=== PATIENT | female | born 1995 | race Caucasian/White ===

== ENCOUNTER 2017-03-03 01:16 | Observation (INO) | payer BC ==
[2017-03-03] MEDS ORDERED: KETOROLAC 30 MG/ML VIAL IVP ONE ×2 (01:26→17:59)
[2017-03-03] MEDS ORDERED: 0.9 % SODIUM CHLORIDE 1000ML 1,000 ML IV SCH (01:30)
[2017-03-03] MEDS ORDERED: MAGNESIUM HYDROXIDE/AL HYDROX 30 ML, LIDOCAINE VISC 2% 200 MG PO ONE ×2 (01:32)
--- NOTE | 2017-03-03 01:32 | Emergency Department Record ---
History of Present Illness - General Chief Complaint: Abdominal Pain Stated Complaint: ABD PAIN Time Seen by Provider: 03/03/17 01:26 Source: Patient Mode of Arrival: Ambulatory Limitations: No limitations - History of Present Illness Initial Comments: 21 yo female presents to ED with a CC of epigastric abdominal pain that began 1.5 hours ago. Patient reports associated nausea without vomiting, denies fevers, chills, or urinary symptoms. Patient denies health problems at her baseline and denies previous abdominal surgery. Patient looked up her symptoms on the internet and is concerned that her gallbladder may be the source. MD Complaint: Abdominal pain Onset/Timin -: Hour(s) Location: Epigastric Radiation: RUQ Severity: Moderate Quality: Aching Consistency: Constant Improves With: Nothing Worsens With: Nothing Associated Symptoms: Nausea - Related Data Home Medications Medication Instructions Recorded Confirmed Last Taken Control 1 tab PO DAILY 03/03/17 Unknown Allergies Allergy/AdvReac Type Severity Reaction Status Date / Time escitalopram oxalate AdvReac Seizures Verified 04/22/14 23:43 [From [employer]] Review of Systems Constitutional: Denies: Chills, Fever, Malaise, Night sweats Eyes: Denies: Eye discharge, Eye pain ENT: Denies: Congestion, Ear pain, Epistaxis Respiratory: Denies: Cough, Dyspnea Cardiovascular: Denies: Chest pain, Dyspnea on exertion Endocrine: Denies: Fatigue, Heat or cold intolerance Gastrointestinal: Reports: Abdominal pain, Nausea. Denies: Constipation, Vomiting Genitourinary: Denies: Dysuria, Frequency Musculoskeletal: Denies: Arthralgia, Back pain, Gout, Joint swelling Skin: Denies: Bruising, Change in color, Change in hair/nails Neurological: Denies: Abnormal gait, Confusion, Headache, Seizure Psychiatric: Denies: Anxiety Hematological/Lymphatic: Denies: Anemia, Blood Clots Past Medical History - SOCIAL HISTORY Smoking Status: Never smoker - RESPIRATORY Hx Respiratory Disorders: Yes Hx Asthma: Yes - CARDIOVASCULAR Hx Cardio Disorders: No - NEURO Hx Neuro Disorders: Yes Hx Seizures: Yes - GI Hx GI Disorders: No - Hx Genitourinary Disorders: Yes Comment:: Polycystic ovaries - ENDOCRINE Hx Endocrine Disorders: No - MUSCULOSKELETAL Hx Musculoskeletal Disorders: No - PSYCH Hx Psych Problems: Yes Hx Anxiety: Yes Hx Depression: Yes - HEMATOLOGY/ONCOLOGY Hx Hematology/Oncology Disorders: No Family Medical History Hx Cancer: Father, Grandparents Hx Diabetes: Grandparents Hx Heart Disease: Grandparents Physical Exam - General General Appearance: Alert, Oriented x3, Cooperative, No acute distress Limitations: No limitations - Head Head exam: Atraumatic, Normocephalic, Normal inspection Head exam detail: negative: Abrasion, Contusion, Dale's sign, General tenderness, Hematoma, Laceration - Eye Eye exam: Normal appearance. negative: Conjunctival injection, Periorbital swelling, Periorbital tenderness, Scleral icterus - ENT Ear exam: negative: Auricular hematoma, Auricular trauma Nasal Exam: negative: Active bleeding, Discharge, Dried blood, Foreign body Mouth exam: negative: Drooling, Laceration, Muffled voice, Tongue elevation - Neck Neck exam: Normal inspection. negative: Meningismus, Tenderness - Respiratory Respiratory exam: Normal lung sounds bilaterally. negative: Rales, Respiratory distress, Rhonchi, Stridor - Cardiovascular Cardiovascular Exam: Regular rate, Normal rhythm, Normal heart sounds - GI/Abdominal GI/Abdominal exam: Soft, Tenderness, Other (mild TTP epigastric region, no rebound or guarding present, no pain with palpation to the RUQ.). negative: Rebound, Rigid - Rectal Rectal exam: Deferred - exam: Deferred - Extremities Extremities exam: Normal inspection. negative: Calf tenderness, Pedal edema, Tenderness - Back Back exam: Denies: CVA tenderness (R), CVA tenderness (L) - Neurological Neurological exam: Alert, Normal gait, Oriented X3 - Psychiatric Psychiatric exam: Normal affect, Normal mood - Skin Skin exam: Normal color. negative: Abrasion Type of lesion: negative: abrasion Course - Reevaluation(s) Reevaluation #1: 03/03/17 02:09 Labs reviewed, AST 38/ALT 58, labs are otherwise grossly unremarkable for an acute process. UA pending. Reevaluation #2: 03/03/17 03:13 UA reviewed and appears negative for infection. Patient is going to CT at this time. Reevaluation #3: 03/03/17 03:55 CT Abdomen and Pelvis: Cholithiasis with mild gallbladder wall thickening, no елена-cholecystic fluid present, no biliary ductal dilation. Medical Decision Making - Lab Data Result diagrams: 03/03/17 01:35 03/03/17 01:35 Disposition Disposition: Admit Clinical Impression: Epigastric abdominal pain, Cholecystitis Disposition: Still a Patient at [facility] Decision to Admit: Admit from ER Decision to Admit Date: 03/03/17 Decision to Admit Time: 04:20 Condition: (2) Stable Time of Disposition: 04:18 Quality - Quality Measures Quality Measures: N/A - Blood Pressure Screening Does Patient Have Any of the Following: No Blood Pressure Classification: Hypertensive Reading Systolic Measurement: 158 Diastolic Measurement: 109 Screening for High Blood Pressure: < First Hypertensive BP, F/U Documented > [ G8950] First Hypertensive Follow-up Interventions: Referral to alternative/primary care provider.
[2017-03-03 01:50] LABS: BASO % 0.2 % (0-6); EOS % 1.2 % (0-6); GRAN % 66.6 % (47-80); HEMATOCRIT 39.8 % (35.0-47.0); HEMOGLOBIN 13.3 gm/dl (11.6-16.0); LYMPH % 22.8 % (16-45); MEAN CELL VOLUME 84.3 fl (81-97); MEAN CORPUSCULAR HEMOGLOBIN 28.2 pg (27-33); MEAN CORPUSCULAR HGB CONC 33.4 g/dl (32-36); MEAN PLATELET VOLUME 11.1 fl (7.4-10.4); MONO % 9.2 % (0-9); PLATELET COUNT 300 K/uL (130-400); RED BLOOD COUNT 4.72 M/uL (3.80-5.40); RED CELL DISTRIBUTION WIDTH 12.4 % (11.5-14.5); WHITE BLOOD COUNT W/O DIFF 11.6 K/uL (4.2-12.2)
[2017-03-03 02:02] LABS: ALB/GLOB RATIO 1.6 (1.1-1.8); ALBUMIN 4.4 gm/dL (3.5-5.0); ALKALINE PHOSPHATASE 70 U/L (38-126); ALT/SGPT 58 U/L (9-52); AST/SGOT 38 U/L (14-36); BILIRUBIN,TOTAL 0.63 mg/dL (0.2-1.3); BLOOD UREA NITROGEN 12 mg/dL (7-17); CREATININE 0.8 mg/dL (0.52-1.04); GLUCOSE,RANDOM 121 mg/dL (70-110); LIPASE 153 U/L (23-300); TOTAL PROTEIN 7.2 gm/dL (6.3-8.2)
[2017-03-03 03:11] LABS: URINE APPEARANCE CLEAR; URINE BILIRUBIN NEGATIVE (NEGATIVE); URINE BLOOD NEGATIVE (NEGATIVE); URINE COLOR YELLOW; URINE GLUCOSE (UA) NEGATIVE (NEGATIVE); URINE KETONE NEGATIVE (NEGATIVE); URINE LEUKOCYTE ESTERASE NEGATIVE (NEGATIVE); URINE NITRITE NEGATIVE (NEGATIVE); URINE PROTEIN NEGATIVE (NEGATIVE); URINE UROBILINOGEN 0.2 E.U./dL (0.20 - 1.00)
[2017-03-03 03:12] LABS: HCG,QUALITATIVE URINE NEGATIVE (NEGATIVE)
[2017-03-03] MEDS ORDERED: ERTAPENEM SODIUM 1 G in 0.9 % SODIUM CHLORIDE 100ML 100 ML IVPB ONE (04:20)
[2017-03-03] MEDS ORDERED: 0.9 % SODIUM CHLORIDE 1000ML 1,000 ML IV PRN (05:26)
[2017-03-03] MEDS: MORPHINE SULFATE 5 MG/ML PFS IVP PRN ×3 (06:43→14:34)
[2017-03-03] MEDS: ONDANSETRON HCL IV 4 MG/2 ML VIAL IVP PRN ×2 (06:44→17:04)
--- NOTE | 2017-03-03 09:33 | History & Physical ---
History of Present Illness - Date of Service Date of Service for History & Physical: 03/03/17 - History of Present Illness Admitting Diagnosis: Cholecystitis History of Present Illness: 21 yo female admitted w/ epigastric pain. PMHx of obesity. Abdominal pain began around midnight last night. located in epigastrium. Radiates to right upper abd, mid back and right shoulder. Described as achy, sharp and dull. aggravated by sitting up, coughing. alleviated by bending over. associated symptoms include diaphoresis, nausea, flatulence, constipation. Patient was then brought in by her mother. upon presentation, HR 125, BP 158/109. WBC normal. AST 38, ALT 58, glucose 121 , UA negative. Abdominal CT: GB wall thickening and cholelithiasis. Patient was given a dose of Ertapenem and 30 mg of IV Ketoralac for pain in the ER. Started on IV NS. General surgery consulted and patient admitted for further medical management. 03/03/17 at 9:33- Patient lying in bed comfortably. States epigastric pain return once she arrived to the floor, however it's now resolved. no fever, chills, vomiting, sweating, blood in stool, diarrhea, dysuria, skin color change , pruritis, cough, sob or cp. Patient denies any previous abd surgeries. States she takes OCP, o/w no other medications. no recent sick contacts, travel or hospitalizations. Denies drug or etoh use. PCP: Dr. Lezama ([place], [place]) Travel Screening - Travel/Exposure Within Last 30 Days Have you traveled within the last 30 days?: No - Travel/Exposure Within Last Year Have you traveled outside the [place] in the last year?: No - Additonal Travel Details Have you been exposed to anyone with a communicable illness?: No - Travel Symptoms Symptom Screening: None Review of Systems Constitutional: Denies: Chills, Fever, Malaise, Night sweats Eyes: Denies: Eye discharge, Eye pain ENT: Denies: Congestion, Ear pain, Epistaxis Respiratory: Denies: Cough, Dyspnea Cardiovascular: Denies: Chest pain, Dyspnea on exertion Endocrine: Denies: Fatigue, Heat or cold intolerance Gastrointestinal: Reports: Abdominal pain (mild epigastric pain). Denies: Constipation, Nausea, Vomiting Genitourinary: Denies: Dysuria, Frequency Musculoskeletal: Denies: Arthralgia, Back pain, Gout, Joint swelling Skin: Denies: Bruising, Change in color, Change in hair/nails Neurological: Denies: Abnormal gait, Confusion, Headache, Seizure Psychiatric: Denies: Anxiety Hematological/Lymphatic: Denies: Anemia, Blood Clots Past Medical History - SOCIAL HISTORY Smoking Status: Never smoker - RESPIRATORY Hx Respiratory Disorders: Yes Hx Asthma: Yes - CARDIOVASCULAR Hx Cardio Disorders: No - NEURO Hx Neuro Disorders: Yes Hx Seizures: Yes - GI Hx GI Disorders: No - Hx Genitourinary Disorders: Yes Comment:: Polycystic ovaries - ENDOCRINE Hx Endocrine Disorders: No - MUSCULOSKELETAL Hx Musculoskeletal Disorders: No - PSYCH Hx Psych Problems: Yes Hx Anxiety: Yes Hx Depression: Yes - HEMATOLOGY/ONCOLOGY Hx Hematology/Oncology Disorders: No Family Medical History Hx Cancer: Father, Grandparents Hx Diabetes: Grandparents Hx Heart Disease: Grandparents H&P Meds/Allergies - Allergies Allergies: Allergies Allergy/AdvReac Type Severity Reaction Status Date / Time escitalopram oxalate AdvReac Seizures Verified 04/22/14 23:43 [From [employer] - Home Medications Home Medications Medication Instructions Recorded Confirmed Last Taken Control 1 tab PO DAILY 03/03/17 Unknown - Active Medications Active Medications: Current Medications Sodium Chloride () 1,000 mls @ 125 mls/hr IV .Q8H PRN PRN Reason: LARGE VOLUME IV Last Admin: 03/03/17 05:29 Dose: 125 mls/hr Morphine Sulfate (Morphine Sulfate) 5 mg IVP Q4HR PRN PRN Reason: Abdominal Pain Stop: 03/10/17 05:27 Last Admin: 03/03/17 06:43 Dose: 5 mg Ondansetron HCl (Zofran) 4 mg IVP Q4H PRN PRN Reason: NAUSEA Last Admin: 03/03/17 06:44 Dose: 4 mg Physical Exam - Vital Signs Vital Signs: Vital Signs - Last 24 Hrs Temp Pulse Resp BP Pulse Ox 03/03/17 05:35 98.0 F 102 H 18 151/79 97 03/03/17 05:09 88 18 - General General Appearance: Alert, Oriented x3, Cooperative, No acute distress Limitations: No limitations - Head Head exam: Atraumatic, Normocephalic, Normal inspection Head exam detail: negative: Abrasion, Contusion, Dale's sign, General tenderness, Hematoma, Laceration - Eye Eye exam: Normal appearance. negative: Conjunctival injection, Periorbital swelling, Periorbital tenderness, Scleral icterus - ENT Ear exam: negative: Auricular hematoma, Auricular trauma Nasal Exam: negative: Active bleeding, Discharge, Dried blood, Foreign body Mouth exam: negative: Drooling, Laceration, Muffled voice, Tongue elevation - Neck Neck exam: Normal inspection. negative: Meningismus, Tenderness - Respiratory Respiratory exam: Normal lung sounds bilaterally. negative: Rales, Respiratory distress, Rhonchi, Stridor - Cardiovascular Cardiovascular Exam: Regular rate, Normal rhythm, Normal heart sounds - GI/Abdominal GI/Abdominal exam: Soft, Normal bowel sounds, Other (mild TTP epigastric region , no rebound or guarding present, no pain with palpation to the RUQ.). negative : Rebound, Rigid, Tenderness - Rectal Rectal exam: Deferred - exam: Deferred - Extremities Extremities exam: Normal inspection. negative: Calf tenderness, Pedal edema, Tenderness - Back Back exam: Denies: CVA tenderness (R), CVA tenderness (L) - Neurological Neurological exam: Alert, Normal gait, Oriented X3 - Psychiatric Psychiatric exam: Normal affect, Normal mood - Skin Skin exam: Normal color. negative: Abrasion Type of lesion: negative: abrasion Results - Labs Result Diagrams: 03/03/17 01:35 03/03/17 01:35 VTE H&P Assessment - Risk for VTE Risk for VTE: Yes Risk Level: Very Low Risk Assessment Date: 03/03/17 Risk Assessment Time: 09:00 VTE Orders Placed or Will Be Placed: No VTE Reason for No Prophylaxis: Not Indicated Plan - Detailed Diagnosis and Plan (1) Thickening of wall of gallbladder Current Visit: Yes Status: Acute Base Code: K82.8 - OTHER SPECIFIED DISEASES OF GALLBLADDER Comment: 03/03/17- 03/03- biliary vs. constipation vs. other? - afebrile. WBC normal. AST 38, ALT 58 - CTA: GB wall thickening, cholelithiatisis - abd u/s - general surgery consult - NPO - IVFs - IV anti emetic, IV pain control as needed (2) DVT prophylaxis Current Visit: Yes Status: Acute Base Code: [id number] - Comment: 03/03- very low risk. ambulation as tolerated. (3) Epigastric abdominal pain Current Visit: Yes Status: Acute Base Code: R10.13 - EPIGASTRIC PAIN Comment: 03/03- biliary vs. constipation vs. other? - afebrile. WBC normal. AST 38, ALT 58 - CTA: GB wall thickening, cholelithiatisis - abd u/s - general surgery consult - NPO - IVFs - IV anti emetic, IV pain control as needed (4) Full code status Current Visit: Yes Status: Acute Base Code: Z78.9 - OTHER SPECIFIED HEALTH STATUS Comment: 03/03- pt is full code
[2017-03-03] MEDS ORDERED: ACETAMINOPHEN 1,000 MG/100 ML BTL IV ONE (11:00)
[2017-03-03] MEDS ORDERED: MECLIZINE 25 MG TABLET PO ONE (11:00)
[2017-03-03] MEDS ORDERED: FAMOTIDINE 20MG TABLET PO ONE (11:00)
[2017-03-03] MEDS ORDERED: METOCLOPRAMIDE 10 MG TABLET PO ONE (11:00)
--- NOTE | 2017-03-03 13:48 | Discharge Summary ---
Providers Discharge Summary Date: 03/03/17 Date of admission: 03/03/17 05:02 Expected Date of Discharge: 03/03/17 Attending physician: SATNAM PALMER Physical Exam - Vital Signs Vital Signs: Vital Signs - Last 24 Hrs Temp Pulse Resp BP BP Pulse Ox 03/03/17 11:29 98.4 F 97 H 19 141/81 98 03/03/17 08:00 98.7 F 98 H 16 137/85 99 03/03/17 05:35 98.0 F 102 H 18 151/79 97 03/03/17 05:09 88 18 - General General Appearance: Alert, Oriented x3, Cooperative, No acute distress Limitations: No limitations - Head Head exam: Atraumatic, Normocephalic, Normal inspection Head exam detail: negative: Abrasion, Contusion, Dale's sign, General tenderness, Hematoma, Laceration - Eye Eye exam: Normal appearance. negative: Conjunctival injection, Periorbital swelling, Periorbital tenderness, Scleral icterus - ENT Ear exam: negative: Auricular hematoma, Auricular trauma Nasal Exam: negative: Active bleeding, Discharge, Dried blood, Foreign body Mouth exam: negative: Drooling, Laceration, Muffled voice, Tongue elevation - Neck Neck exam: Normal inspection. negative: Meningismus, Tenderness - Respiratory Respiratory exam: Normal lung sounds bilaterally. negative: Rales, Respiratory distress, Rhonchi, Stridor - Cardiovascular Cardiovascular Exam: Regular rate, Normal rhythm, Normal heart sounds - GI/Abdominal GI/Abdominal exam: Soft, Normal bowel sounds. negative: Rebound, Rigid, Tenderness - Rectal Rectal exam: Deferred - exam: Deferred - Extremities Extremities exam: negative: Calf tenderness, Pedal edema, Tenderness - Back Back exam: Denies: CVA tenderness (R), CVA tenderness (L) - Neurological Neurological exam: Alert - Psychiatric Psychiatric exam: Normal affect, Normal mood - Skin Skin exam: Normal color. negative: Abrasion Type of lesion: negative: abrasion Hospitalization - Hospitalization Admission Diagnosis: Cholecystitis - Problem List/Discharge Diagnosis (1) Thickening of wall of gallbladder Status: Acute Base Code: K82.8 - OTHER SPECIFIED DISEASES OF GALLBLADDER Comment: 03/03/17- s/p cholecystectomy by Dr. Kincaid. Dr. Kincaid provided Georgette with Tramadol for pain control once discharged. Dr. Kincaid will follow up with patient as outpatient as well. I've asked that she contact her PCP to schedule a follow up visit within 5-7 days of d/c. (2) Full code status Status: Acute Base Code: Z78.9 - OTHER SPECIFIED HEALTH STATUS Comment: 03/03 - pt remained full code - Hospitalization Course Disposition: Home, Self-Care Hospital Course: 21 yo female admitted w/ epigastric pain. PMHx of obesity. Abdominal pain began around midnight last night. located in epigastrium. Radiates to right upper abd, mid back and right shoulder. Described as achy, sharp and dull. aggravated by sitting up, coughing. alleviated by bending over. associated symptoms include diaphoresis, nausea, flatulence, constipation. Patient was then brought in by her mother. upon presentation, HR 125, BP 158/109. WBC normal. AST 38, ALT 58, glucose 121 , UA negative. Abdominal CT: GB wall thickening and cholelithiasis. Patient was given a dose of Ertapenem and 30 mg of IV Ketoralac for pain in the ER. Started on IV NS. General surgery consulted and patient admitted for further medical management. 03/03/17 at 9:33- Patient lying in bed comfortably. States epigastric pain return once she arrived to the floor, however it's now resolved. no fever, chills, vomiting, sweating, blood in stool, diarrhea, dysuria, skin color change , pruritis, cough, sob or cp. Patient denies any previous abd surgeries. States she takes OCP, o/w no other medications. no recent sick contacts, travel or hospitalizations. Denies drug or etoh use. PCP: Dr. Lezama ([place], [place]) Procedures: Imaging and X-Rays 03/03/17 06:51 ABDOMEN, COMPLETE [US] Stat Condition at Discharge: (2) Stable Discharge Medications - Discharge Medications Home Medications: Ambulatory Orders Control 1 tab PO DAILY 03/03/17 [Last Taken Unknown] Discharge Plan - Discharge Instructions Activity at Discharge: Increase Activity as Tolerated Diet at Discharge: Low Fat, Low Cholesterol Instructions: Abdominal Pain (ED) Additional Instructions: Be sure to Rest! Follow Dr. Colon dietary & pain control recommendations. (PRESCRIPTION GIVEN for Tramadol) Follow up with family doctor within 5-7 days of discharge. Follow up with Dr. Kincaid as scheduled. return re any new or worsening symptoms Quality Measures - Quality Measures Quality Measures: Documentation of Current Medications in Medical Record, Screening for High Blood Pressure and F/U Documented - Current Medications Quality Measure: Measure #130: Documentation of Current Medications Documentation of Current Medications: <Current Medications Documented/Reviewed> [G8427] - Blood Pressure Screening Quality Measure: Screening for High Blood Pressure and Follow-Up Documented Does Patient Have Any of the Following: No Blood Pressure Classification: Hypertensive Reading Systolic Measurement: 158 Diastolic Measurement: 109 Screening for High Blood Pressure: Pre or Hypertensive BP, No F/U Documented [ G8952] First Hypertensive Follow-up Interventions: Lifestyle modifications. Lifestyle Modification: Weight Reduction, Dietary Sodium Restriction, Increased Physical Activity - Elder Abuse Suspicion Index EASI Reference Information: Dorian CARBAJAL, Kaila C, Nyla D, Osmel Bassett.Development and validation of a tool to assist physicians identification of elder abuse: The Elder Abuse Suspicion Index (EASI ). Journal of Elder Abuse and Neglect, 2008; 20 (3): 276-300.
[2017-03-03] MEDS ORDERED: BUPIVACAINE 0.25% W/EPI MPF 30ML VIAL IVP ONE (14:26)
--- NOTE | 2017-03-03 16:19 | CT SCAN REPORT ---
EXAM: CT SCAN ABDOMEN/PELVIS W CONTRAST HISTORY: RIGHT UPPER QUADRANT ABDOMINAL PAIN. TECHNIQUE: Contrast-enhanced helical CT examination of the abdomen and pelvis is performed with 90 mL of Omnipaque-300 utilized. COMPARISON: None. FINDINGS: The lung bases are clear and there is no pleural or pericardial effusion. The heart is not enlarged. No focal abnormality is demonstrated within the liver, spleen, pancreas, adrenal glands, nor right kidney. There is a well-circumscribed fluid density mass arising from the lateral mid to upper left kidney measuring 1.4 cm in diameter consistent with a simple cyst. The left kidney is otherwise normal in appearance. There are several low-density gallstones present with the gallbladder wall borderline to mildly thickened. No definite pericholecystic fluid nor biliary ductal dilatation, however, demonstrated. No intraabdominal nor retroperitoneal lymphadenopathy. The vasculature is normal in appearance. A tiny fat-filled umbilical hernia is present. No pelvic mass, lymphadenopathy, or free pelvic fluid is seen. The uterus is in the midline. The ovaries are not enlarged. Small follicles are scattered in each ovary. No gross bowel dilatation nor bowel wall thickening. The appendix is visualized and normal in appearance. Evaluation of the urinary bladder is limited by lack of distention. No lytic or blastic bone lesion is seen. IMPRESSION: 1. MULTIPLE LOW-DENSITY GALLSTONES PRESENT ASSOCIATED WITH BORDERLINE TO MILD GALLBLADDER WALL THICKENING. ACUTE CHOLECYSTITIS CANNOT BE EXCLUDED. NO BILIARY DUCTAL DILATATION. 2. A 1.4 CM LEFT RENAL CYST. [facility]: [id number] [facility]
--- NOTE | 2017-03-03 16:29 | ULTRASOUND REPORT ---
EXAM: ULTRASOUND ABDOMEN, COMPLETE HISTORY: RIGHT UPPER QUADRANT ABDOMINAL PAIN. CHOLELITHIASIS. TECHNIQUE: Routine ultrasound examination of the abdomen is performed. COMPARISON: CT abdomen and pelvis with contrast dated 03/03/2017. FINDINGS: The pancreas is normal in appearance. The abdominal aorta is without aneurysmal dilatation and the inferior vena cava is patent. The portal vein appears patent. No focal hepatic abnormality is demonstrated. No intra- or extrahepatic biliary ductal dilatation is seen with the common hepatic duct measuring 4.4 mm. Multiple echogenic foci with posterior shadowing are noted within the gallbladder lumen consistent with cholelithiasis. No gross gallbladder wall thickening is demonstrated with the gallbladder wall measuring 2.1 mm in thickness. No pericholecystic fluid identified. There is a negative sonographic Degroot sign reported. The spleen is not enlarged and is homogeneous in echo texture. Screening evaluation of the kidneys does not demonstrate hydronephrosis with the right kidney measuring 10.3 cm in length and the left kidney measuring 11.1 cm in length. There is a heterogeneous echogenic focus within the mid left kidney measuring 1.5 cm in diameter. This is of indeterminate etiology. A simple -appearing cyst is noted near this region on same-day CT examination. IMPRESSION: 1. CHOLELITHIASIS WITHOUT GALLBLADDER WALL THICKENING OR PERICHOLECYSTIC FLUID. THERE IS A REPORTED NEGATIVE SONOGRAPHIC DEGROOT SIGN. 2. NO EVIDENCE OF BILIARY DUCTAL DILATATION WITH THE COMMON HEPATIC DUCT MEASURING 4.4 MM IN DIAMETER. 3. ROUNDED ECHOGENIC FOCUS MEASURING 1.5 CM IN MAXIMUM DIAMETER. THIS IS OF INDETERMINANT ETIOLOGY. THIS AREA HAS THE APPEARANCE OF A BENIGN CYST ON SAME- DAY CT ABDOMEN EXAMINATION. [facility]: [id number] [facility]
[2017-03-03] MEDS ORDERED: ONDANSETRON HCL IV 4 MG/2 ML VIAL IVP ONE (17:59)
[2017-03-03] MEDS ORDERED: NEOSTIGMINE 1 MG/1 ML,10ML VIAL IV ONE (17:59)
[2017-03-03] MEDS ORDERED: MIDAZOLAM HCL 2MG/2ML VIAL IV ONE (17:59)
[2017-03-03] MEDS ORDERED: LIDOCAINE 2% MDV (20MG/ML) 20ML VIAL IV ONE (17:59)
[2017-03-03] MEDS ORDERED: FENTANYL PF 100MCG/2ML VIAL IV ONE (17:59)
[2017-03-03] MEDS ORDERED: GLYCOPYRROLATE 0.2 MG/ML ML IV ONE (17:59)
[2017-03-03] MEDS ORDERED: SEVOFLURANE 250 ML INH ONE (17:59)
[2017-03-03] MEDS ORDERED: SUCCINYLCHOLINE 20 MG/ML 10ML IVP ONE (17:59)
[2017-03-03] MEDS ORDERED: PROPOFOL 10 MG/ML VIAL IV ONE (17:59)
--- NOTE | 2017-03-04 17:40 | Medical Records Consult ---
DATE OF CONSULTATION: 03/03/2017 REASON FOR CONSULTATION: Abdominal pain. HISTORY OF PRESENT ILLNESS: The patient is a 21-year-old female who for the last 2 weeks has had ongoing episodic epigastric and right subcostal pain. She states that this radiates to her right flank and back and she is extremely nauseated with this. She states that she did have some mild nausea in the past. PAST MEDICAL HISTORY: Negative for any significant illnesses. PAST SURGICAL HISTORY: Ventral hernia repair as a child. CURRENT MEDICATIONS: control. ALLERGIES: LEXAPRO. SOCIAL HISTORY: She denies any tobacco or alcohol usage. PHYSICAL EXAMINATION: VITAL SIGNS: Stable. She is afebrile. HEART: Regular. LUNGS: Clear. ABDOMEN: Soft, morbidly obese. There is a well-healed scar in the middle. She has mild epigastric tenderness on deep palpation. DIAGNOSTIC DATA: Imaging and laboratory values were reviewed. The patient has a normal white count. However, the CT scan did show cholelithiasis with gallbladder wall thickening. IMPRESSION: Cholelithiasis and chronic cholecystitis. PLAN: We did discuss cholecystectomy versus medical management. She desires surgical intervention. Risks include but are not limited to bleeding, infection, ductal injury, possible conversion to open, postoperative bile leak. She understands this fully. This will be scheduled for later today. Thank you for this referral. FRAN
--- NOTE | 2017-03-06 06:01 | Operative Note ---
DATE OF SURGERY: 03/03/2017 Surgeon: Antonino Kincaid DO PREOPERATIVE DIAGNOSIS: Cholelithiasis with chronic cholecystitis. POSTOPERATIVE DIAGNOSIS: Cholelithiasis with chronic cholecystitis. OPERATION: Laparoscopic cholecystectomy. Indication: The patient is a 21-year-old female who had ongoing right subcostal postprandial pain. Imaging studies were consistent with cholelithiasis with potential thickened gallbladder wall. Clinical exam as well as history fit the same for recurrent biliary colic. We did discuss cholecystectomy versus medical management. She desired surgical intervention. Risks include but are not limited to bleeding, infection, ductal injury, possible conversion to open, postoperative bile leak. She understood this fully. PROCEDURE: Therefore, after consent was signed and questions answered, she was taken to the operating room and placed in a supine position. General anesthesia was administered per the department of anesthesia. The patient's abdomen was prepped and draped in the usual sterile fashion. Due to the patient's morbid obesity as well as body habitus, I had to go in a supraumbilical region. This area was anesthetized with a total of 3 mL of 0.25% Sensorcaine with epinephrine. A 2 cm supraumbilical incision was made. This was carried down to the anterior rectus fascia. This was incised. Nancy clamps were placed on the fascial edges and brought up into the wound. Stay sutures of 0 Vicryl were placed. Posterior rectus sheath was identified and incised. The peritoneal cavity was entered bluntly. At this time a 10 mm blunt Brooke port was placed. Adequate pneumoperitoneum was established. Under direct visualization, additional 5 mm epigastric and two 5 mm right subcostal ports were placed. The patient was rotated into steep reverse Trendelenburg with rotation to left. Gallbladder was identified in the subhepatic space. It was noted to be very edematous and distended. This was then retracted in a cephalad and lateral direction over the angle of Calot. The hepatocystic triangle was thoroughly dissected out. There was no aberrant anatomy, no posterior ductal structures. We did release the distal half of the gallbladder off the cystic plate giving us an excellent critical view of safety. The cystic duct and cystic artery were both triple clipped and cut in a standard fashion. Gallbladder was then taken off the liver bed with Carlos harmonic. The nascimento and planes were very edematous due to the inflammatory nature. Once this was done, this was extracted through the supraumbilical port. The patient was leveled out. The right upper quadrant was rechecked and noted to be hemostatic. No bleeding. No bile leak. No bowel injury noted. The patient was leveled out. The pneumoperitoneum was released. All ports were removed. The fascia was closed with 0 Vicryl in a [id number] fashion. The skin of all ports was closed with 4-0 Vicryl. The patient was taken to the recovery room in satisfactory condition. FINDINGS AT THE TIME OF SURGERY: Acute cholecystitis. CC: Dr. Evelia PETERS
== END 2017-03-03 18:00 | disposition home or self-care (01) ==
LOC: ER 01:16 → MEDSURG 05:02
PROVIDERS: ADMIT Family Medicine; ATTEND Family Medicine
DX: K80.10 Calculus of gallbladder with chronic cholecystitis without obstruction (principal)
CPT/HCPCS: 99285 ×2; 96365; 96375; 96361; 83690; 85025; 80053; 81003; 80061; 81025; 76700; 74177; 47562; 00790; G0378; Q9967; J1335; J1885; J2405; J3010; J2270; J0330; J2710; J7030